=== PATIENT | female | born 1965 | race Caucasian/White ===

== ENCOUNTER → 2021-03-28 09:58 | Outpatient (CLI) | payer OTHER, SELFPAY ==
--- NOTE | ~2021-03-28 | XR_ITS ---
EXAMINATION: XR knee LT min 4V DATE: 03/28/2021 10:40 INDICATION: Left knee pain TECHNIQUE: Four views of the left knee were obtained. COMPARISON: None. FINDINGS: Alignment is normal. No fracture or osteochondral lesion. Joint spaces are normal with no e rosions. No joint effusion/synovitis. Soft tissues are unremarkable. IMPRESSION: 1. No acute osseous abnormality. Reviewed, dictated and finalized at location A.
== END ==
PROVIDERS: PCP Chiropractor; Visit Provider Chiropractor
DX: M25.562 Pain in left knee (principal); Z01.818 Encounter for other preprocedural examination
CPT/HCPCS: 73564

== ENCOUNTER 2021-05-18 10:36 | Outpatient (CLI) | payer OTHER, SELFPAY ==
--- NOTE | 2021-05-18 | ECG_ITS ---
Measurements Intervals [place] Rate: 105 P: 68 GA: 132 QRS: 55 QRSD: 88 T: 35 QT: 327 QTc: 433 Interpretive Statements SINUS TACHYCARDIA BORDERLINE ECG Electronically Signed On 05-18-2021 16:23:47 CDT by Jung Lopez D.O.
== END 2021-05-18 10:37 | disposition home or self-care (01) ==
LOC: ANHCARD 11:00
PROVIDERS: PCP Chiropractor
DX: Z01.810 Encounter for preprocedural cardiovascular examination (principal)
CPT/HCPCS: 93005

== ENCOUNTER 2024-10-13 16:18 | Outpatient (CLI) | payer OTHER, SELFPAY ==
--- NOTE | ~2024-10-13 | US_ITS ---
EXAMINATION: US thyroid DATE: 10/13/2024 16:33 INDICATION: Thyroid nodule TECHNIQUE: Multiple ultrasound images of the thyroid were obtained. COMPARISON: None. FINDINGS: The right thyroid lobe measures 2.1 x 1.2 x 0.9 cm. Within the right lobe of the thyroid gland is a 3.9 x 3.3 x 4.2 mm nodule: Composition -solid or almost completely solid (2) Echogenicity -hyperechoic or isoechoic (1) Shape - wider than tall Margin - smooth Echogenic foci - none. = TR3 Mildly suspicious Greater than or equal to 1.5 cm: Follow-up Greater than or equal to 2.5 cm: FNA The left thyroid lobe measures 4.9 x 1.1 x 1.3 cm. The isthmus measures 0.2cm in anterior to posterior dimension. There is otherwise normal echotexture and echogenicity throughout the remainder of the thyroid gland. No additional discrete nodules identified. Normal vascular flow is present. IMPRESSION: Mildly suspicious (TR 3) nodule within the right lobe of the thyroid gland which does not meet size c riteria for either follow-up or FNA. Follow-up may be performed but is not recommended. Reviewed, dictated and finalized at location A. IMPRESSION: Mildly suspicious (TR 3) nodule within the right lobe of the thyroid gland whic h does not meet size criteria for either follow-up or FNA. Follow-up may be performed but is not recommended.
== END 2024-10-13 16:19 | disposition home or self-care (01) ==
LOC: MICIMG 16:19
PROVIDERS: PCP Chiropractor; Visit Provider Chiropractor
DX: E04.1 Nontoxic single thyroid nodule (principal)
CPT/HCPCS: 76536